=== PATIENT | male | born 1950 | race Caucasian/White ===

== ENCOUNTER 2019-02-26 15:40 | Outpatient (CLI) | payer MEDICARE, OTHER ==
--- NOTE | 2019-02-26 16:42 | XRAY Report ---
Reason: ACUTE L CALCANEAL PAIN Procedure Date: 02/26/2019 Accession Number: [id number] / [id number] Procedure: XR - Calcaneus LT CPT Code: FULL RESULT: EXAM: LEFT ANKLE RADIOGRAPHY EXAM DATE: 02/26/2019 03:57 PM. CLINICAL HISTORY: Acute left calcaneal pain. COMPARISON: None. TECHNIQUE: 3 views. FINDINGS: Bones: Small plantar calcaneal spur. No fractures or bone lesions. Joints: Normal. No effusion. No subluxations. The ankle mortise is normally aligned. Soft Tissues: Mild plantar fascial calcifications. No soft tissue swelling. IMPRESSION: 1. No acute osseous abnormality seen in the left calcaneus. 2. Small plantar calcaneal spur and mild plantar fascial calcifications. Question plantar fasciitis. [facility]
== END 2019-02-26 15:41 | disposition home or self-care (01) ==
LOC: DI 15:40
PROVIDERS: ATTEND Podiatrist
DX: M77.32 Calcaneal spur, left foot (principal)